=== PATIENT | male | born 1950 | race Caucasian/White ===

== ENCOUNTER → 2022-10-04 08:43 | Outpatient (BNVA) | payer MEDICARE, SELFPAY | PROVIDERS: PCP Physician Assistant; Visit Provider Psychiatry & Neurology Neurology | DX: G20 Parkinson's disease (principal); G47.10 Hypersomnia, unspecified; R06.83 Snoring; R44.3 Hallucinations, unspecified | CPT/HCPCS: 99202 ==

== ENCOUNTER → 2022-10-29 12:53 | Outpatient (REF) | payer MEDICARE, SELFPAY | LOC: HO.SL 12:53 | PROVIDERS: PCP Internal Medicine; Visit Provider Psychiatry & Neurology Neurology | DX: Z13.89 Encounter for screening for other disorder (principal) ==

== ENCOUNTER 2023-06-27 12:11 | Outpatient (AMB) | payer MEDICARE, SELFPAY ==
--- NOTE | 2023-06-27 12:49 | A.OFFVIS_ITS ---
Intake Vital Signs 06/27/23 12:53 Height 5 ft 4 in Weight 182 lb 2 oz BMI 31.3 BP 138/68 Blood Pressure Location Rt brachial Position Sitting Respiration 15 Pulse 61 Pulse Source Pulse Oximeter Pulse Oximetry (%) 98 Oxygen Delivery Method Room Air Intake Visit Reasons: 4m follow up parkinsons-LVM Intake Note: Pt presents to office for his 4 month follow up for Parkinson's disease. Pt states he thinks his symptoms are becoming worse.His tremors are worse, gait is unsteady, increased salivation. Allergies No Known Allergies Allergy (Verified 06/27/23 12:52) Medication List - Last Reconciled 06/27/23 by Odilia Pandey MD carbidopa-levodopa 25-100 mg 0.5 tabs PO TID 30 days lisinopril-hydrochlorothiazide 20-12.5 mg 1 tab PO DAILY lorazepam 0.5 mg PO DAILY rosuvastatin 5 mg PO DAILY sertraline 25 mg PO DAILY zolpidem 10 mg PO BEDTIME PRN HPI HPI Comments History of Present Illness Details 72y/o Right handed male comes for follow up of parkinsons disease [place] [address] Patel. He is accompanied by his multimedia specialist Sintia.He noticed mild worsening of symptoms but still independent in all his ADLs. Previous history- His main symptom was left hand tremors and shuffling , drooling that started 1 year ago. He noticed intermittent left hand tremors about 21years ago and it has progressively worsened since then .The tremors are mostly at rest . The tremors does not bother him and does not affect his ADLs. He reports mild memory issues . He has short term memory issues. No word finding difficulties. He takes zolpidem for sleep. He has sleep talking and some abnormal movements in sleep. He denies kicking screaming. He has occasional snoring. No gasping arousals or witnessed apneas. He has occasional daytime fatigue. he denies nightmares, vivid dreams , REM behavior disorder. His mood is Ok and he is motivated. He feels his speech is softer. He has excessive drooling.. He has no difficulty with hand writing, using utensils, dressing. He can shower without help. His gait is slow and mildly off balance . His steps are shorter . No dizziness , no double vision . He has occasional mild hallucinations. He has constipation and mild urgency . No head injury, no fh/o parkinsons, no exposure to insecticides. [facility] Medical History Anemia Arthritis BPH (benign prostatic hyperplasia) Vertigo Cataracts, bilateral Carpal tunnel syndrome HTN (hypertension) Hyperlipidemia Insomnia Depression Anxiety Obesity Surgical History Hx of shoulder surgery Family History Other No known health problems Social History Household Members: Friend(s) Alcohol intake: current Alcohol intake frequency: holidays/special occasions only Alcohol type: hard liquor Patient Tobacco Use Status: Former Tobacco user Tobacco use type: Cigar Years Smoked: former Physical Exam Vital Signs: Last Vital Signs Pulse 61 06/27/23 12:53 Resp 15 06/27/23 12:53 BP 138/68 06/27/23 12:53 Pulse Ox 98 06/27/23 12:53 Oxygen Delivery Method Room Air 06/27/23 12:53 BMI result Body Mass Index 31.3 Const General: cooperative, healthy appearing and comfortable Nutritional Appearance: overweight Orientation/consciousness: patient oriented x3 HEENT Head: Yes normal to inspection Neck Other: mild antecollis and restricted range of motion Neuro Other: Mild decreased blink and facial expression No lip tremors, tongue tremors , slow tongue movements Voice- normal Left UE mild amplitude rest tremors Fine Finger movements - moderately decreased fatoumata l>R Alternating hand movements - decreased fatoumata Hand movements - decreased fatoumata Foot taps- decreased fatoumata mild cog wheel rigidity gait - stooped, mild slowness and decreased arm swing L>R General: patient oriented x3 Cranial nerves: Yes CN's II-XII intact bilaterally, Yes Bilaterally intact EOM present, Yes Normal facial strength present and Yes Midline tongue present Cognition (Neuro): normal cognition Motor exam (neuro): 5/5 motor strength present throughout and Normal motor muscle tone present throughout Deep tendon reflexes (DTR's): Right triceps reflex intensity grade: 2+, Left triceps reflex intensity grade: 2+, Rt Biceps (C5, C6): 2+, Left biceps reflex intensity grade: 2+, Right brachioradialis reflex intensity grade: 2+, Left brachioradialis reflex intensity grade: 2+, Right patellar reflex intensity grade: 2+ and Left patellar reflex intensity grade: 2+ Coordination: [id number] test normal Assessment & Plan Assessment & Plan (1) Parkinson's disease: Code(s): G20 - Parkinson's disease (2) Snoring: Code(s): R06.83 - Snoring (3) Hypersomnia: Code(s): G47.10 - Hypersomnia, unspecified (4) Hallucinations: Code(s): R44.3 - Hallucinations, unspecified Plan Diagnosis of parkinsons and management options were discussed in detail I suggested PT for gait training He wants to hold off on medications for now. Restart sertraline 25 mg qd I am also concerned about about his infrequent hallucinations- will follow up clinically. Home sleep test to r/o sleep apnea- could not do the test Orders: Orders PT Evaluation and Treatment Today G20 - Parkinson's disease Medications: New sertraline 25 mg PO DAILY 30 tabs 6RF Discontinued carbidopa-levodopa 25-100 mg Discontinued Reason: Patient no longer taking 0.5 tabs PO TID 30 days 45 tabs 1RF Coding Level of Care Code Est Pt Level 4 (62951) Diagnoses Parkinson's disease G20 Snoring R06.83 Hypersomnia G47.10 Hallucinations R44.3
[2023-06-27 12:53] VITALS: BP 138/68; PULSE 61; RESP 15; O2SAT 98; BMI 31.3
== END 2023-06-27 13:10 | disposition home or self-care (01) ==
PROVIDERS: Visit Provider Psychiatry & Neurology Neurology
DX: G20.A1 Parkinson's disease without dyskinesia, without mention of fluctuations (principal); R44.3 Hallucinations, unspecified; R06.83 Snoring; G47.10 Hypersomnia, unspecified
CPT/HCPCS: 99214

== ENCOUNTER → 2023-06-27 12:11 | Outpatient (BNVA) | payer MEDICARE, SELFPAY | PROVIDERS: Visit Provider Psychiatry & Neurology Neurology | DX: G20.A1 Parkinson's disease without dyskinesia, without mention of fluctuations (principal); R06.83 Snoring; G47.10 Hypersomnia, unspecified; R44.3 Hallucinations, unspecified | CPT/HCPCS: 99212 ==

== ENCOUNTER 2023-11-17 15:20 | Outpatient (AMB) | payer MEDICARE, SELFPAY ==
--- NOTE | 2023-11-17 15:23 | A.OFFVIS_ITS ---
Intake Vital Signs 11/17/23 15:24 Height 5 ft 4 in Weight 182 lb BMI 31.2 BP 142/68 H Blood Pressure Location Rt brachial Position Sitting Respiration 16 Pulse 58 Pulse Source Pulse Oximeter Pulse Oximetry (%) 98 Oxygen Delivery Method Room Air Intake Visit Reasons: 4 mo f/u - Parkinson-CONF Intake Note: Pt presents to the office for 4 month follow up for Parkinson's. Pt c/o changes in his speech- he states he is noticing it is slower lately. Director Informatics Required: No Allergies No Known Allergies Allergy (Verified 11/17/23 15:23) Medication List - Last Reconciled 11/17/23 by Odilia Pandey MD lisinopril-hydrochlorothiazide 20-12.5 mg 1 tab PO DAILY lorazepam 0.5 mg PO DAILY rosuvastatin 5 mg PO DAILY sertraline 25 mg PO DAILY zolpidem 10 mg PO BEDTIME PRN HPI HPI Comments History of Present Illness Details 72y/o Right handed male comes for follow up of parkinsons disease diagnosed [place] [address] Patel. He noticed mild worsening of symptoms but still independent in all his ADLs. He has drooling which is worse now . Sleep- good , no nightmares or REM behavior now Mood- anxiety Memory- Mild diffiuclty Speech- softer , mild slurring Using utensils- good Dressing and showering- good No falls Gait- good Bowel movements- was in ER few weeks ago for constipation No head injury, no fh/o parkinsons, no exposure to insecticides. [facility] Medical History (Updated 11/17/23 @ 15:37 by Odilia Pandey MD) Constipation Parkinson's disease without dyskinesia Anemia Arthritis BPH (benign prostatic hyperplasia) Vertigo Cataracts, bilateral Carpal tunnel syndrome HTN (hypertension) Hyperlipidemia Insomnia Depression Anxiety Obesity Surgical History Hx of shoulder surgery Family History Other No known health problems Social History Household Members: Friend(s) Alcohol intake: current Alcohol intake frequency: holidays/special occasions only Alcohol type: hard liquor Patient Tobacco Use Status: Former Tobacco user Tobacco use type: Cigar Years Smoked: former Physical Exam Vital Signs: Last Vital Signs Pulse 58 11/17/23 15:24 Resp 16 11/17/23 15:24 BP 142/68 H 11/17/23 15:24 Pulse Ox 98 11/17/23 15:24 Oxygen Delivery Method Room Air 11/17/23 15:24 BMI result Body Mass Index 31.2 Const General: cooperative, healthy appearing and comfortable Nutritional Appearance: overweight Orientation/consciousness: patient oriented x3 HEENT Head: Yes normal to inspection Neck Other: mild antecollis and restricted range of motion Neuro Other: Mild decreased blink and facial expression No lip tremors, tongue tremors , slow tongue movements Voice- normal Left UE mild amplitude rest tremors Fine Finger movements - moderately decreased fatoumata l>R Alternating hand movements - decreased fatoumata Hand movements - decreased fatoumata Foot taps- decreased fatoumata mild cog wheel rigidity gait - stooped, mild slowness and decreased arm swing L>R General: patient oriented x3 Cranial nerves: Yes CN's II-XII intact bilaterally, Yes Bilaterally intact EOM present, Yes Normal facial strength present and Yes Midline tongue present Cognition (Neuro): normal cognition Motor exam (neuro): 5/5 motor strength present throughout and Normal motor muscle tone present throughout Deep tendon reflexes (DTR's): Right triceps reflex intensity grade: 2+, Left triceps reflex intensity grade: 2+, Rt Biceps (C5, C6): 2+, Left biceps reflex intensity grade: 2+, Right brachioradialis reflex intensity grade: 2+, Left brachioradialis reflex intensity grade: 2+, Right patellar reflex intensity grade: 2+ and Left patellar reflex intensity grade: 2+ Coordination: [id number] test normal Assessment & Plan Assessment & Plan (1) Parkinson's disease without dyskinesia: Code(s): G20.A1 - Parkinson's disease without dyskinesia, without mention of fluctuations (2) Constipation: Code(s): K59.00 - Constipation, unspecified Plan I will trial him on sinemet 25/100 1/2 tab bid - monitor for hallucinations continue exercises senna for constipation Coding Level of Care Code Est Pt Level 4 (31364) Diagnoses Parkinson's disease without dyskinesia G20.A1 Constipation K59.00
[2023-11-17 15:24] VITALS: BP 142/68; PULSE 58; RESP 16; O2SAT 98; BMI 31.2
== END 2023-11-17 15:47 | disposition home or self-care (01) ==
LOC: HO.HSMS 15:20
PROVIDERS: PCP Internal Medicine; Visit Provider Psychiatry & Neurology Neurology
DX: G20.A1 Parkinson's disease without dyskinesia, without mention of fluctuations (principal); K59.00 Constipation, unspecified
CPT/HCPCS: 99214

== ENCOUNTER → 2023-11-17 15:20 | Outpatient (BNVA) | payer MEDICARE, SELFPAY | PROVIDERS: PCP Internal Medicine; Visit Provider Psychiatry & Neurology Neurology | DX: G20.A1 Parkinson's disease without dyskinesia, without mention of fluctuations (principal); K59.00 Constipation, unspecified | CPT/HCPCS: 99212 ==

== ENCOUNTER 2024-03-02 11:25 | Outpatient (AMB) | payer MEDICARE, SELFPAY ==
--- NOTE | 2024-03-02 11:22 | MHC.OFFVIS ---
Vital Signs 03/02/24 11:23 Height 5 ft 4 in Weight 182 lb BMI 31.2 BP 120/62 Blood Pressure Location Rt brachial Position Sitting Respiration 16 Pulse 68 Pulse Source Pulse Oximeter Pulse Oximetry (%) 96 Oxygen Delivery Method Room Air Intake Visit Reasons: 3 Month F/U - Conf Intake Note: Pt presents to the office for a 3 month follow up for Parkinson's. [employer] Required: No Allergies No Known Allergies Allergy (Verified 03/02/24 11:23) Medication List - Last Reconciled 03/02/24 by Odilia Pandey MD lisinopril-hydrochlorothiazide 20-12.5 mg 1 tab PO DAILY rosuvastatin 5 mg PO DAILY zolpidem 10 mg PO BEDTIME PRN HPI Comments Details: 73y/o Right handed male comes for follow up of parkinsons disease diagnosed [place] [address] Patel. He noticed mild worsening of symptoms but still independent in all his ADLs. he tried carbidopa/levodopa for 10 days and made him tired He has drooling which is worse now . Sleep- good , no nightmares or REM behavior now Mood- anxiety and depression Memory- Mild difficulty Speech- softer , mild slurring Using utensils- good Dressing and showering- good No falls Gait- good Bowel movements- constipation but manageable No head injury, no fh/o parkinsons, no exposure to insecticides. [facility] Medical History (Updated 03/02/24 @ 11:36 by Odilia Pandey MD) Depression Constipation Parkinson's disease without dyskinesia Anemia Arthritis BPH (benign prostatic hyperplasia) Vertigo Cataracts, bilateral Carpal tunnel syndrome HTN (hypertension) Hyperlipidemia Insomnia Depression Anxiety Obesity Surgical History Hx of shoulder surgery Family History Other No known health problems Social History Household Members: Friend(s) Alcohol intake: current Alcohol intake frequency: holidays/special occasions only Alcohol type: hard liquor Patient Tobacco Use Status: Former Tobacco user Tobacco use type: Cigar Years Smoked: former Physical Exam Vital Signs: Last Vital Signs Pulse 68 03/02/24 11:23 Resp 16 03/02/24 11:23 BP 120/62 03/02/24 11:23 Pulse Ox 96 03/02/24 11:23 Oxygen Delivery Method Room Air 03/02/24 11:23 BMI result Body Mass Index 31.2 Const General: cooperative, healthy appearing and comfortable Nutritional Appearance: overweight Orientation/consciousness: patient oriented x3 HEENT Head: Yes normal to inspection Neck Other: mild antecollis and restricted range of motion Neuro Other: Mild decreased blink and facial expression No lip tremors, tongue tremors , slow tongue movements Voice- normal Left UE mild amplitude rest tremors Fine Finger movements - moderately decreased fatoumata l>R Alternating hand movements - decreased fatoumata Hand movements - decreased fatoumata Foot taps- decreased fatoumata mild cog wheel rigidity gait - stooped, mild slowness and decreased arm swing L>R General: patient oriented x3 Cranial nerves: Yes CN's II-XII intact bilaterally, Yes Bilaterally intact EOM present, Yes Normal facial strength present and Yes Midline tongue present Cognition (Neuro): normal cognition Motor exam (neuro): 5/5 motor strength present throughout and Normal motor muscle tone present throughout Deep tendon reflexes (DTR's): Right triceps reflex intensity grade: 2+, Left triceps reflex intensity grade: 2+, Rt Biceps (C5, C6): 2+, Left biceps reflex intensity grade: 2+, Right brachioradialis reflex intensity grade: 2+, Left brachioradialis reflex intensity grade: 2+, Right patellar reflex intensity grade: 2+ and Left patellar reflex intensity grade: 2+ Coordination: [id number] test normal Assessment & Plan Assessment & Plan (1) Parkinson's disease without dyskinesia: Code(s): G20.A1 - Parkinson's disease without dyskinesia, without mention of fluctuations Category: Medical (2) Constipation: Code(s): K59.00 - Constipation, unspecified Category: Medical (3) Depression: Code(s): F32.A - Depression, unspecified Category: Medical Plan I will trial him on rasagiline 1mg qd I will trial him on lexapro 5mg qd - monitor for hallucinations continue exercises senna for constipation Medications: New rasagiline 1 mg PO DAILY 30 tabs 6RF escitalopram oxalate 5 mg PO DAILY 30 tabs 6RF Coding Level of Care Code Est Pt Level 4 (46803) Complex EM visit Add On G2211 Diagnoses Parkinson's disease without dyskinesia G20.A1 Constipation K59.00 Depression F32.A
[2024-03-02 11:23] VITALS: BP 120/62; PULSE 68; RESP 16; O2SAT 96; BMI 31.2
== END 2024-03-02 13:15 | disposition home or self-care (01) ==
PROVIDERS: PCP Internal Medicine; Visit Provider Psychiatry & Neurology Neurology
DX: G20.A1 Parkinson's disease without dyskinesia, without mention of fluctuations (principal); K59.00 Constipation, unspecified; F32.A Depression, unspecified
CPT/HCPCS: 99214; G2211

== ENCOUNTER → 2024-03-02 11:25 | Outpatient (BNVA) | payer MEDICARE, SELFPAY | PROVIDERS: PCP Internal Medicine; Visit Provider Psychiatry & Neurology Neurology | DX: G20.A1 Parkinson's disease without dyskinesia, without mention of fluctuations (principal); K59.00 Constipation, unspecified; F32.A Depression, unspecified | CPT/HCPCS: 99212 ==

== ENCOUNTER 2024-07-12 07:32 | Outpatient (AMB) | payer MEDICARE, SELFPAY ==
--- NOTE | 2024-07-12 07:34 | MHC.OFFVIS ---
Vital Signs 07/12/24 07:35 Height 5 ft 4 in Weight 183 lb BMI 31.4 BP 144/80 H Blood Pressure Location Rt brachial Position Sitting Intake Visit Reasons: Follow up Intake Note: Patient presents for follow up. Allergies No Known Allergies Allergy (Verified 07/12/24 07:38) Medication List - Last Reconciled 07/12/24 by Odilia Pandey MD escitalopram oxalate 5 mg PO DAILY lisinopril-hydrochlorothiazide 20-12.5 mg 1 tab PO DAILY rasagiline 1 mg PO DAILY rosuvastatin 5 mg PO DAILY zolpidem 10 mg PO BEDTIME PRN HPI Comments Details: 73y/o Right handed male comes for follow up of parkinsons disease diagnosed [place] [address] Patel. He was tired rasagiline and lexapro but patient did not start.He feels his symptoms have progressed and wants to try meds . History from last visit- He noticed mild worsening of symptoms but still independent in all his ADLs. he tried carbidopa/levodopa for 10 days and made him tired He has drooling which is worse now . Sleep- good , no nightmares or REM behavior now Mood- anxiety and depression Memory- Mild difficulty Speech- softer , mild slurring Using utensils- good Dressing and showering- good No falls Gait- good Bowel movements- constipation but manageable No head injury, no fh/o parkinsons, no exposure to insecticides. [facility] Medical History Depression Constipation Parkinson's disease without dyskinesia Anemia Arthritis BPH (benign prostatic hyperplasia) Vertigo Cataracts, bilateral Carpal tunnel syndrome HTN (hypertension) Hyperlipidemia Insomnia Depression Anxiety Obesity Surgical History Hx of shoulder surgery Family History Other No known health problems Social History Household Members: Friend(s) Alcohol intake: current Alcohol intake frequency: holidays/special occasions only Alcohol type: hard liquor Patient Tobacco Use Status: Former Tobacco user Tobacco use type: Cigar Years Smoked: former Physical Exam Vital Signs: Last Vital Signs BP 144/80 H 07/12/24 07:35 BMI result Body Mass Index 31.4 Const General: cooperative, healthy appearing and comfortable Nutritional Appearance: overweight Orientation/consciousness: patient oriented x3 HEENT Head: Yes normal to inspection Neck Other: mild antecollis and restricted range of motion Neuro Other: Mild decreased blink and facial expression No lip tremors, tongue tremors , slow tongue movements Voice- normal Left UE mild amplitude rest tremors Fine Finger movements - moderately decreased fatoumata l>R Alternating hand movements - decreased fatoumata Hand movements - decreased fatoumata Foot taps- decreased fatoumata mild cog wheel rigidity gait - stooped, mild slowness and decreased arm swing L>R General: patient oriented x3 Cranial nerves: Yes CN's II-XII intact bilaterally, Yes Bilaterally intact EOM present, Yes Normal facial strength present and Yes Midline tongue present Cognition (Neuro): normal cognition Motor exam (neuro): 5/5 motor strength present throughout and Normal motor muscle tone present throughout Deep tendon reflexes (DTR's): Right triceps reflex intensity grade: 2+, Left triceps reflex intensity grade: 2+, Rt Biceps (C5, C6): 2+, Left biceps reflex intensity grade: 2+, Right brachioradialis reflex intensity grade: 2+, Left brachioradialis reflex intensity grade: 2+, Right patellar reflex intensity grade: 2+ and Left patellar reflex intensity grade: 2+ Coordination: [id number] test normal Assessment & Plan Assessment & Plan (1) Parkinson's disease without dyskinesia: Code(s): G20.A1 - Parkinson's disease without dyskinesia, without mention of fluctuations Category: Medical Qualifiers: Fluctuating manifestations: without fluctuating manifestations Qualified Code(s): G20.A1 - Parkinson's disease without dyskinesia, without mention of fluctuations (2) Constipation: Code(s): K59.00 - Constipation, unspecified Category: Medical Qualifiers: Constipation type: unspecified constipation type Qualified Code(s): K59.00 - Constipation, unspecified (3) Depression: Code(s): F32.A - Depression, unspecified Category: Medical Qualifiers: Depression Type: other depression Qualified Code(s): F32.89 - Other specified depressive episodes Plan I will trial him on rasagiline 1mg qd I will trial him on lexapro 5mg qd - monitor for hallucinations continue exercises senna for constipation Medications: Refilled rasagiline 1 mg PO DAILY 30 tabs 6RF escitalopram oxalate 5 mg PO DAILY 30 tabs 6RF Coding Level of Care Code Est Pt Level 4 (42998) Complex EM visit Add On G2211 Diagnoses Parkinson's disease without dyskinesia or fluctuating manifestations G20.A1 Fluctuating manifestations: without fluctuating manifestations Constipation, unspecified constipation type K59.00 Constipation type: unspecified constipation type Other depression F32.89 Depression Type: other depression
[2024-07-12 07:35] VITALS: BP 144/80; BMI 31.4
== END 2024-07-12 08:14 | disposition home or self-care (01) ==
PROVIDERS: PCP Internal Medicine; Visit Provider Psychiatry & Neurology Neurology
DX: G20.A1 Parkinson's disease without dyskinesia, without mention of fluctuations (principal); K59.00 Constipation, unspecified; F32.89 Other specified depressive episodes
CPT/HCPCS: 99214; G2211

== ENCOUNTER → 2024-07-12 07:32 | Outpatient (BNVA) | payer MEDICARE, SELFPAY | PROVIDERS: PCP Internal Medicine; Visit Provider Psychiatry & Neurology Neurology | DX: G20.A1 Parkinson's disease without dyskinesia, without mention of fluctuations (principal); K59.00 Constipation, unspecified; F32.89 Other specified depressive episodes | CPT/HCPCS: 99212 ==

== ENCOUNTER 2024-08-27 09:57 | Outpatient (AMB) | payer MEDICARE, SELFPAY ==
--- NOTE | 2024-08-27 09:58 | MHC.OFFVIS ---
Vital Signs 08/27/24 10:00 Height 5 ft Weight 183 lb BMI 35.7 Intake Visit Reasons: Follow up Intake Note: Patient presents for follow up Allergies No Known Allergies Allergy (Verified 08/27/24 10:03) Medication List - Last Reconciled 08/27/24 by Odilia Pandey MD escitalopram oxalate 5 mg PO DAILY lisinopril-hydrochlorothiazide 20-12.5 mg 1 tab PO DAILY polyethylene glycol 3350 (Miralax) 17 grams PO .3 times a week rasagiline 1 mg PO DAILY rosuvastatin 5 mg PO DAILY zolpidem 10 mg PO BEDTIME PRN HPI Comments Details: 73y/o Right handed male comes for follow up of parkinsons disease [place] [address] Patel. He is on rasagiline 1mg and lexapro 5mg and feels he is doing good , less anxiety.he feels that now he also has some symptoms on the right side and his walking is slower History from last visit- He noticed mild worsening of symptoms but still independent in all his ADLs. he tried carbidopa/levodopa for 10 days and made him tired He has drooling which is worse now . Sleep- good , no nightmares or REM behavior now Mood- anxiety and depression Memory- Mild difficulty Speech- softer , mild slurring Using utensils- good Dressing and showering- good No falls Gait- good Bowel movements- constipation but manageable No head injury, no fh/o parkinsons, no exposure to insecticides. [facility] Medical History Depression Constipation Parkinson's disease without dyskinesia Anemia Arthritis BPH (benign prostatic hyperplasia) Vertigo Cataracts, bilateral Carpal tunnel syndrome HTN (hypertension) Hyperlipidemia Insomnia Depression Anxiety Obesity Surgical History Hx of shoulder surgery Family History Other No known health problems Social History Household Members: Friend(s) Alcohol intake: current Alcohol intake frequency: holidays/special occasions only Alcohol type: hard liquor Patient Tobacco Use Status: Former Tobacco user Tobacco use type: Cigar Years Smoked: former Physical Exam Vital Signs: BMI result Body Mass Index 35.7 Const General: cooperative, healthy appearing and comfortable Nutritional Appearance: overweight Orientation/consciousness: patient oriented x3 HEENT Head: Yes normal to inspection Neck Other: mild antecollis and restricted range of motion Neuro Other: Mild decreased blink and facial expression No lip tremors, tongue tremors , slow tongue movements Voice- normal Left UE mild amplitude rest tremors - rare Fine Finger movements - mild decreased fatoumata l>R Alternating hand movements - decreased fatoumata Hand movements - decreased fatoumata Foot taps- decreased fatoumata mild cog wheel rigidity gait - good mild slowness and decreased arm swing L>R General: patient oriented x3 Cranial nerves: Yes CN's II-XII intact bilaterally, Yes Bilaterally intact EOM present, Yes Normal facial strength present and Yes Midline tongue present Cognition (Neuro): normal cognition Motor exam (neuro): 5/5 motor strength present throughout and Normal motor muscle tone present throughout Coordination: [id number] test normal Assessment & Plan Assessment & Plan (1) Parkinson's disease without dyskinesia: Code(s): G20.A1 - Parkinson's disease without dyskinesia, without mention of fluctuations Category: Medical Qualifiers: Fluctuating manifestations: without fluctuating manifestations Qualified Code(s): G20.A1 - Parkinson's disease without dyskinesia, without mention of fluctuations (2) Constipation: Code(s): K59.00 - Constipation, unspecified Category: Medical Qualifiers: Constipation type: unspecified constipation type Qualified Code(s): K59.00 - Constipation, unspecified (3) Depression: Code(s): F32.A - Depression, unspecified Category: Medical Qualifiers: Depression Type: other depression Qualified Code(s): F32.89 - Other specified depressive episodes Plan Continue rasagiline 1mg qd Continue lexapro 5mg qd - monitor for hallucinations continue exercises Parkinsons class at [facility] for constipation, suggested smooth move tea and miralax Medications: New polyethylene glycol 3350 (Miralax) 17 grams PO .3 times a week 510 grams 6RF Coding Level of Care Code Est Pt Level 4 (48968) Complex EM visit Add On G2211 Diagnoses Parkinson's disease without dyskinesia or fluctuating manifestations G20.A1 Fluctuating manifestations: without fluctuating manifestations Constipation, unspecified constipation type K59.00 Constipation type: unspecified constipation type Other depression F32.89 Depression Type: other depression
[2024-08-27 10:00] VITALS: BMI 35.7
== END 2024-08-27 10:35 | disposition home or self-care (01) ==
PROVIDERS: PCP Internal Medicine; Visit Provider Psychiatry & Neurology Neurology
DX: G20.A1 Parkinson's disease without dyskinesia, without mention of fluctuations (principal); K59.00 Constipation, unspecified; F32.89 Other specified depressive episodes
CPT/HCPCS: 99214; G2211

== ENCOUNTER → 2024-08-27 09:57 | Outpatient (BNVA) | payer MEDICARE, SELFPAY | PROVIDERS: PCP Internal Medicine; Visit Provider Psychiatry & Neurology Neurology | DX: G20.A1 Parkinson's disease without dyskinesia, without mention of fluctuations (principal); K59.00 Constipation, unspecified; F32.89 Other specified depressive episodes | CPT/HCPCS: 99212 ==

== ENCOUNTER 2025-02-28 07:29 | Outpatient (AMB) | payer MEDICARE, SELFPAY ==
[2025-02-28 07:34] VITALS: BP 132/70; PULSE 55; BMI 35.2
--- NOTE | 2025-02-28 07:34 | A.OFFVIS_ITS ---
Vital Signs 02/28/25 07:34 Height 5 ft Weight 180 lb BMI 35.2 BP 132/70 Blood Pressure Location Rt brachial Position Sitting Pulse 55 Pulse Source Pulse Oximeter Oxygen Delivery Method Room Air Oxygen Flow Rate 96 Intake Visit Reasons: 6 mo follow up Intake Note: Patient presents for follow up Parkinson's. Allergies No Known Allergies Allergy (Verified 02/28/25 07:36) Medication List - Last Reconciled 02/28/25 by Odilia Pandey MD escitalopram oxalate 5 mg PO DAILY lisinopril-hydrochlorothiazide 20-12.5 mg 1 tab PO DAILY polyethylene glycol 3350 (Miralax) 17 grams PO .3 times a week rasagiline 1 mg PO DAILY rosuvastatin 5 mg PO DAILY zolpidem 10 mg PO BEDTIME PRN HPI Comments Details: 74y/o Right handed male comes for follow up of parkinsons disease [place] [address] Patel. He is on rasagiline 1mg and lexapro 5mg and feels he is ok , less anxiety.he feels that now he also has some symptoms on the right side and his walking is slower He does [employer] fit 3 times a week. He has mild word finding difficulty. He reports excessive fatigue . He takes naps during daytime History from last visit- He noticed mild worsening of symptoms but still independent in all his ADLs. he tried carbidopa/levodopa for 10 days and made him tired He has drooling which is worse now . Sleep- good , no nightmares or REM behavior now Mood- anxiety and depression Memory- Mild difficulty Speech- softer , mild slurring Using utensils- good Dressing and showering- good No falls Gait- good Bowel movements- constipation but manageable No head injury, no fh/o parkinsons, no exposure to insecticides. [facility], [facility] Medical History (Updated 02/28/25 @ 07:55 by Odilia Pandey MD) Snoring Hypersomnia Depression Constipation Parkinson's disease without dyskinesia Anemia Arthritis BPH (benign prostatic hyperplasia) Vertigo Cataracts, bilateral Carpal tunnel syndrome HTN (hypertension) Hyperlipidemia Insomnia Depression Anxiety Obesity Surgical History Hx of shoulder surgery Family History Other No known health problems Social History Household Members: Friend(s) Alcohol intake: current Alcohol intake frequency: holidays/special occasions only Alcohol type: hard liquor Patient Tobacco Use Status: Former Tobacco user Tobacco use type: Cigar Years Smoked: former Physical Exam Vital Signs: Last Vital Signs Pulse 55 02/28/25 07:34 BP 132/70 02/28/25 07:34 Oxygen Delivery Method Room Air 02/28/25 07:34 Oxygen Flow Rate 96 02/28/25 07:34 BMI result Body Mass Index 35.2 Const General: cooperative, healthy appearing and comfortable Nutritional Appearance: overweight Orientation/consciousness: patient oriented x3 HEENT Head: Yes normal to inspection Neck Other: mild antecollis and restricted range of motion Neuro Other: Mild decreased blink and facial expression No lip tremors, tongue tremors , slow tongue movements Voice- normal Left UE mild amplitude rest tremors - rare Fine Finger movements - mild decreased fatoumata l>R Alternating hand movements - decreased fatoumata Hand movements - decreased fatoumata Foot taps- decreased fatoumata mild cog wheel rigidity gait - good mild slowness and decreased arm swing L>R General: patient oriented x3 Cranial nerves: Yes CN's II-XII intact bilaterally, Yes Bilaterally intact EOM present, Yes Normal facial strength present and Yes Midline tongue present Cognition (Neuro): normal cognition Motor exam (neuro): 5/5 motor strength present throughout and Normal motor muscle tone present throughout Coordination: [id number] test normal Assessment & Plan Assessment & Plan (1) Parkinson's disease without dyskinesia: Code(s): G20.A1 - Parkinson's disease without dyskinesia, without mention of fluctuations Category: Medical Qualifiers: Fluctuating manifestations: without fluctuating manifestations Qualified Code(s): G20.A1 - Parkinson's disease without dyskinesia, without mention of fluctuations (2) Constipation: Code(s): K59.00 - Constipation, unspecified Category: Medical Qualifiers: Constipation type: unspecified constipation type Qualified Code(s): K59.00 - Constipation, unspecified (3) Depression: Code(s): F32.A - Depression, unspecified Category: Medical Qualifiers: Depression Type: other depression Qualified Code(s): F32.89 - Other specified depressive episodes (4) Hypersomnia: Code(s): G47.10 - Hypersomnia, unspecified Category: Medical (5) Snoring: Code(s): R06.83 - Snoring Category: Medical Plan Continue rasagiline 1mg qd Increase lexapro 10mg qd - monitor for hallucinations sleep study - in lab study - could not do home sleep test continue exercises Parkinsons class at [facility] for constipation, suggested smooth move tea and miralax Orders: Orders RT PSG in-lab sleep study 02/28/25 G47.10 - Hypersomnia, unspecified, R06.83 - Snoring Medications: Changed From escitalopram oxalate 5 mg PO DAILY 30 tabs 6RF To escitalopram oxalate 10 mg PO DAILY 30 tabs 6RF Coding Level of Care Code Est Pt Level 4 (29717) Complex EM visit Add On G2211 Diagnoses Parkinson's disease without dyskinesia or fluctuating manifestations G20.A1 Fluctuating manifestations: without fluctuating manifestations Constipation, unspecified constipation type K59.00 Constipation type: unspecified constipation type Other depression F32.89 Depression Type: other depression Hypersomnia G47.10 Snoring R06.83
== END 2025-02-28 08:03 | disposition home or self-care (01) ==
LOC: HO.HSMS 07:30
PROVIDERS: PCP Internal Medicine; Visit Provider Psychiatry & Neurology Neurology
DX: G20.A1 Parkinson's disease without dyskinesia, without mention of fluctuations (principal); K59.00 Constipation, unspecified; F32.89 Other specified depressive episodes; G47.10 Hypersomnia, unspecified; R06.83 Snoring
CPT/HCPCS: 99214; G2211

== ENCOUNTER → 2025-02-28 07:29 | Outpatient (BNVA) | payer MEDICARE, SELFPAY | PROVIDERS: PCP Internal Medicine; Visit Provider Psychiatry & Neurology Neurology | DX: G20.A1 Parkinson's disease without dyskinesia, without mention of fluctuations (principal); F32.89 Other specified depressive episodes; G47.10 Hypersomnia, unspecified; R06.83 Snoring; K59.00 Constipation, unspecified | CPT/HCPCS: 99212 ==

== ENCOUNTER 2025-04-28 13:55 | Outpatient (AMB) | payer MEDICARE, SELFPAY ==
[2025-04-28 13:56] VITALS: BP 120/62; PULSE 65; O2SAT 95; BMI 35.0
--- NOTE | 2025-04-28 13:56 | MHC.OFFVIS ---
Vital Signs 04/28/25 13:56 Height 5 ft Weight 179 lb 2 oz BMI 35.0 BP 120/62 Blood Pressure Location Rt brachial Position Sitting Pulse 65 Pulse Source Pulse Oximeter Pulse Oximetry (%) 95 Oxygen Delivery Method Room Air Intake Visit Reasons: 4 mnts f/u appt Intake Note: Follow up care Accompanied by: Self / Same As Patient Allergies No Known Allergies Allergy (Verified 04/28/25 14:01) HPI Comments Details: 74y/o Right handed male comes for follow up of parkinsons disease diagnosed [place] [address] Patel.H efjose manuells his symptoms have worsened . He feels he is slower and tremors are worse .He is also concerned about his mem He is on rasagiline 1mg and lexapro 5mg and feels he is ok.His voice is softer. He has a feeling that someone is standing next to him. He does [employer] fit 3 times a week. He has word finding difficulty. He reports excessive fatigue . He takes naps during daytime History from last visit- He noticed mild worsening of symptoms but still independent in all his ADLs. he tried carbidopa/levodopa for 10 days and made him tired He has drooling which is worse now . Sleep- good , no nightmares or REM behavior now Mood- anxiety and depression Memory- Mild difficulty Speech- softer , mild slurring Using utensils- good Dressing and showering- good No falls Gait- good Bowel movements- constipation but manageable No head injury, no fh/o parkinsons, no exposure to insecticides. [facility] Medical History (Updated 02/28/25 @ 07:55 by Odilia Pandey MD) Snoring Hypersomnia Depression Constipation Parkinson's disease without dyskinesia Anemia Arthritis BPH (benign prostatic hyperplasia) Vertigo Cataracts, bilateral Carpal tunnel syndrome HTN (hypertension) Hyperlipidemia Insomnia Depression Anxiety Obesity Surgical History Hx of shoulder surgery Family History Other No known health problems Social History Household Members: Friend(s) Alcohol intake: current Alcohol intake frequency: holidays/special occasions only Alcohol type: hard liquor Patient Tobacco Use Status: Former Tobacco user Tobacco use type: Cigar Years Smoked: former Physical Exam Vital Signs: Last Vital Signs Pulse 65 04/28/25 13:56 BP 120/62 04/28/25 13:56 Pulse Ox 95 04/28/25 13:56 Oxygen Delivery Method Room Air 04/28/25 13:56 BMI result Body Mass Index 35.0 Const General: cooperative, healthy appearing and comfortable Nutritional Appearance: overweight Orientation/consciousness: patient oriented x3 HEENT Head: Yes normal to inspection Neck Other: mild antecollis and restricted range of motion Neuro Other: Mild decreased blink and facial expression No lip tremors, tongue tremors , slow tongue movements Voice- normal Left UE mild amplitude rest tremors Fine Finger movements - mild decreased fatoumata l>R Alternating hand movements - decreased fatoumata Hand movements - decreased fatoumata Foot taps- decreased fatoumata mild cog wheel rigidity gait - good mild slowness and decreased arm swing L>R General: patient oriented x3 Cranial nerves: Yes CN's II-XII intact bilaterally, Yes Bilaterally intact EOM present, Yes Normal facial strength present and Yes Midline tongue present Cognition (Neuro): normal cognition Motor exam (neuro): 5/5 motor strength present throughout and Normal motor muscle tone present throughout Coordination: maijip-vy-cpiy test normal Orientation What is the (year) (season) (date) (day) (month)?: year, season, date, day and month Where are we (state) (county) (town or city) (hospital) (floor)?: state, county, town or city, hospital/clinic and floor Registration Name of 3 unrelated objects clearly and slowly, then ask patient to repeat all 3 of them. (1st repeat determines score. Make sure they can repeat all three): object 1, object 2 and object 3 Attention & Calculation (CHOOSE ONE) Spell WORLD backwards (DLROW): 5 letters Recall Ask patient to repeat the 3 items from question #3.: object 1, object 2 and object 3 Language Show patient a wristwatch & ask what it is. Repeat for pencil.: watch and pencil Ask the patient to repeat the phrase 'No ifs, ands, or buts' after you.: correct Ask the patient to 'take a piece of paper with their right hand' 'fold paper in half' 'place paper on floor': take paper in right hand, fold paper in half and place paper on floor Print the sentence 'CLOSE YOUR EYES' on a piece. If patient actually closes eyes then score.: followed written direction Give patient a blank piece of paper & ask to write a sentence. Score if it contains a noun & verb.: sentence contains subject and verb Ask patient to copy figure of intersecting pentagons exactly. Score if all 10 angles & 2 intersects are included.: all 10 angles present & 2 are intersected Score Score: 30 Assessment & Plan Assessment & Plan (1) Parkinson's disease without dyskinesia: Code(s): G20.A1 - Parkinson's disease without dyskinesia, without mention of fluctuations Category: Medical Qualifiers: Fluctuating manifestations: without fluctuating manifestations Qualified Code(s): G20.A1 - Parkinson's disease without dyskinesia, without mention of fluctuations (2) Constipation: Code(s): K59.00 - Constipation, unspecified Category: Medical Qualifiers: Constipation type: unspecified constipation type Qualified Code(s): K59.00 - Constipation, unspecified (3) Depression: Code(s): F32.A - Depression, unspecified Category: Medical Qualifiers: Depression Type: other depression Qualified Code(s): F32.89 - Other specified depressive episodes (4) Hypersomnia: Code(s): G47.10 - Hypersomnia, unspecified Category: Medical (5) Snoring: Code(s): R06.83 - Snoring Category: Medical Plan Continue rasagiline 1mg qd lexapro 10mg qd trial carbidopa /levodopa 25/100 1 /2 tab bid - monitor for hallucinations sleep study - in lab study - could not do home sleep test- rescheduled continue exercises Parkinsons class at [facility] for constipation, suggested smooth move tea and miralax Orders: Referrals Neuropsychiatry Referral G20.A1 - Parkinson's disease without dyskinesia, without mention of fluctuations, R41.89 - Other symptoms and signs involving cognitive functions and awareness Medications: New carbidopa-levodopa 25-100 mg (Sinemet) 0.5 tabs PO BID 30 tabs 6RF Coding Level of Care Code Est Pt Level 4 (24842) Complex EM visit Add On G2211 Diagnoses Parkinson's disease without dyskinesia or fluctuating manifestations G20.A1 Fluctuating manifestations: without fluctuating manifestations Constipation, unspecified constipation type K59.00 Constipation type: unspecified constipation type Other depression F32.89 Depression Type: other depression Hypersomnia G47.10 Snoring R06.83
--- OUTSIDE RECORDS SUMMARY | 2025-04-28 14:46 | XMS_ITS ---
Author Name [facility] Organization Unknown Care Team Organization Name Specialty Phone Email Start Date End [facility] te [facility] Jeana Loja Primary Care 07/23/2022 05/03/2024
--- OUTSIDE RECORDS SUMMARY | 2025-04-28 14:46 | XMS_ITS | Clinical Summary ---
Author Organization [address] [facility] Address [address] [place] [address] Phone Care Team Providers Care Manager Mobility Name Role Phone Jeana Loja Primary Care Provider + Allergies Active Allergy Reactions Criticality Noted Date Comments Simvastatin 06/08/2019 myalgias Medications lisinopril-hydroCH LOROthiazide (PRINZIDE,ZESTORET IC) 20-12.5 mg per tablet Take 1 tablet by mouth 1 (one) time each day. 90 tablet 3 08/02/20 24 Active rosuvastatin (CRESTOR) 5 mg tablet TAKE ONE TABLET BY MOUTH EVERY DAY 90 tablet 3 08/02/20 24 Active sildenafiL (VIAGRA) 50 mg tablet TAKE ONE TABLET BY MOUTH 30 MINUTES BEFORE SEXUAL ACTIVITY 01/21/20 24 Active tobramycin-dexAMET Hasone (TOBRADEX) ophthalmic suspension INSTILL ONE DROP IN EACH EYE TWICE A DAY 03/12/20 24 Active escitalopram (Lexapro) 5 mg tablet Take 1 tablet (5 mg total) by mouth 1 (one) time each day. 09/06/20 24 Active rasagiline (AZILECT) 1 mg tabletIndications: Parkinson's disease, unspecified whether dyskinesia present, unspecified whether manifestations fluctuate (CMS/HCC V24, CMS/HCC V28) Take 1 tablet (1 mg total) by mouth 1 (one) time each day. 09/06/20 24 Active magnesium 250 mg tabletIndications: Primary hypertension Take 1 tablet by mouth at bedtime. 90 tablet 1 01/06/20 25 Active zolpidem (AMBIEN) 10 mg tablet TAKE ONE TABLET BY MOUTH DAILY AT BEDTIME NEEDED FOR SLEEP 28 tablet 04/23/20 25 Active zolpidem (AMBIEN) 10 mg tablet TAKE ONE TABLET BY MOUTH EVERY DAY AT BEDTIME NEEDED FOR SLEEP 28 tablet 03/23/20 25 025 Discontinued Active Problems Problem Noted Date Diagnosed Date Obesity (BMI 30.0-34.9) 07/30/2024 Left shoulder pain 11/16/2018 Hypertension 11/21/2017 Hyperlipidemia 11/21/2017 Bilateral carpal tunnel syndrome 11/04/2017 Bilateral cataracts 05/02/2017 Vertigo 05/02/2017 BPPV (benign paroxysmal positional vertigo) 03/15 Decreased hearing of left ear 04/01/2017 Anal fissure 10/23/2016 Anemia 10/22/2016 Overview (07/30/2024): mild normocytic - no iron or b12 def Insomnia 10/22/2016 Benign prostatic hyperplasia 07/19/2016 Anxiety and depression 12/19/2015 Arthralgia of multiple sites 12/19/2015 Internal hemorrhoids 02/26/2013 Parkinson's disease ([facility] V24, [facility] V28) Encounters Date Type Department Care Team Description 02/08/2025 9:45 AM EDT Office Visit Internal Medicine - [address] [place] [address] Jeana Loja PA Primary hypertension (Primary Dx); Pure hypercholesterolemia from Last 3 Months Immunizations Name Administration Dates Next Due Influenza Quadravalent, 0.5m l (Fluad) 65yo and older 09/16/2023,06/20/2020 Influenza Quadravalent, 0.5m l (Fluzone High-dose) 65yo and older 07/20/2022,07/14/2021 Influenza trivalent, 0.5mL ( Fluad) 65yo and older 09/06/2024,07/10/2019,07/14/2018 Influenza trivalent, 0.5mL ( Fluzone High-dose) 65yo and older 06/25/2016 Influenza, live, intranasal, quadrivalent (FluMist) 2yo to less than 50yo 05/24/2017 Pneumococcal conjugate 13 va lent (Prevnar 13, PCV13) 2mo and older 07/14/2018 Td Tetanus diptheria (Tdvax) 7yo and older 04/04 Tdap Tetanus diptheria acell ular pertussis (Boostrix; Adacel) 7yo and older 04/04/2014 Medical History Medical History Date Comments Anxiety and depression 12/19/2015 DX:Anxiet y and depression Benign prostatic hyperplasia 07/19/2016 DX: Benign prostatic hyperplasia Bilateral carpal tunnel syndrome 11/04/2017 DX:Bilateral carpal tunnel syndrome Bilateral cataracts 05/02/2017 DX:Bilateral cataracts BPPV (benign paroxysmal posi tional vertigo) 04/01/2017 DX:BPPV (benign paroxysmal positional vertigo) Decreased hearing of left ear 04/01/2017 DX :Decreased hearing of left ear History of herpes zoster 05/02/2015 DX:Hist ory of herpes zoster Hyperlipidemia 11/21/2017 DX:Hyperlipidemi a Hypertension 11/21/2017 DX:Hypertension Insomnia 10/22/2016 DX:Insomnia Internal hemorrhoids 02/26/2013 DX:Internal hemorrhoids Vertigo 05/02/2017 DX:Vertigo Anemia 10/22/2016 DX:Anemia; COMME NT: mild normocytic - no iron or b12 def Anal fissure 10/23/2016 DX:Anal fissure Arthralgia of multiple sites 12/19/2015 DX: Arthralgia of multiple sites Obesity (BMI 30.0-34.9) DX:Obesi ty (BMI 30.0-34.9) Parkinson's disease ([facility] V24, [facility] V28) Social History Tobacco Use Types Packs/Day Years Used Date Smoking Tobacco: Former Cigarettes Q uit: 09/15/2017 Smokeless Tobacco: Never Alcohol Use Standard Drinks/Week Comments Yes 0 (1 standard drink = 0.6 oz pur e alcohol) rare Sex and Gender Information Value Date Recorded Sex Assigned at Not on file Legal Sex Male 2:02 PM EST Gender Identity Not on file Sexual Orientation Not on file Obstetrics History Last Filed Vital Signs Vital Sign Reading Time Taken Comments Blood Pressure 136/76 02/08/2025 9:37 AM EDT Pulse 56 02/08/2025 9:31 AM EDT Temperature 36.6 C (97.8 F) 02/08/2025 9:31 AM EDT Respiratory Rate - - Oxygen Saturation 98% 02/08/2025 9:31 AM EDT Inhaled Oxygen Concentration - - Weight 81.9 kg (180 lb 9.6 oz) 02/08/2025 9:31 A M EDT Height 162.6 cm (5' 4 ) 01/05/2025 10:21 AM EDT Body Mass Index 31 01/05/2025 10:21 AM EDT Plan of Treatment Upcoming Encounters Date Type Department Care Team (Late st Contact Info) Description 05/13/2025 9:30 AM EDT Office Visit Internal Medicine - [place] [address] [place] [id number] Jeana Loja, PA [address] [place] [address] Health Maintenance Due Date Last Done Comments Zoster Vaccines (1 of 2) 2000 Pneumococcal Vaccine: 50+ Years (2 of 2 - PPSV23) 07/14/2019 07/14/2018 Abdominal Aortic Aneurysm (AAA) Screen 08/24/2022 Hepatitis C Screening 08/24/2022 Medicare Annual Wellness Visit 08/24/2022 Social Influencers of Health Screening 08/24/2022 Falls Risk Assessment 01/14/2024 01/13/2023 DTaP,Tdap,and Td Vaccines (3 - Td or Tdap) 04/04/2024 04/04/2014, 04/04/2014 COVID-19 Vaccine ( - season) 2024 07/20/2022, 08/04/2021, 01/29/2021, Additional history exists Depression Screening 09/15/2024 05/07/2024 Influenza Vaccine (#1) 2025 , 09/16/2023, 07/20/2022, Additional history exists Hypertension/CHF/CAD Annual BMP Blood Test 05/24/2025 05/24/2024, 05/24/2024, 01/21/2024 RSV Immunization Adult Patients (1 - 1-dose 75+ series) 2025 Cholesterol Screening (Lipid Panel) 05/24/2029 05/24/2024, 05/24/2024, 01/21/2024 Colorectal Cancer Screening: Colonoscopy 10/16/2033 10/16/2023 HIB Vaccines Aged Out No longer eligi ble based on patient's age to complete this topic HPV Vaccines Aged Out No longer eligi ble based on patient's age to complete this topic Hepatitis A Vaccines Aged Out No long er eligible based on patient's age to complete this topic Hepatitis B Vaccines Aged Out No long er eligible based on patient's age to complete this topic IPV Vaccines Aged Out No longer eligi ble based on patient's age to complete this topic MMR Vaccines Aged Out No longer eligi ble based on patient's age to complete this topic Meningococcal ACWY Vaccine Aged Out N o longer eligible based on patient's age to complete this topic Meningococcal B Vaccine Aged Out No l onger eligible based on patient's age to complete this topic RSV Immunization Patients Under 20 months Aged Out No longer eligible based on patient's age to complete this topic Varicella Vaccines Aged Out No longer eligible based on patient's age to complete this topic Procedures Procedure Name Priority Date/Time Associated Diagnosis Comments ANNUAL BMP BLOOD TEST Routine 05/24/2024 LIPID PANEL Routine 05/24/2024 DEPRESSION SCREENING Routine 05/07/2024 FALLS RISK ASSESSMENT Routine 01/13/2023 from Last 3 Months or Most Recently Relevant to Health Maintenance Results * Annual BMP Blood Test (05/24/2024) [facility] Annual BMP Blood Test abstracted [facility] Provider HEALTH MAINTENANCE Final Result * Lipid panel (05/24/2024) [facility] LDL/HDL Ratio 3 0 - 4 Triglycerides 67 0 - 150 mg/dL Cholesterol 153 0 - 200 mg/dL HDL 55 >=40 mg/dL LDL Cholesterol 85 0 - 100 mg/dL Blood Venous blood specimen / Unknown Historical Provider LAB BLOOD ORDERABLES Mary l Result * Depression Screening (05/07/2024) [facility] Depression Screening abstracted us Historical Provider HEALTH MAINTENANCE Final Result * Falls Risk Assessment (01/13/2023) Falls Risk Assessment abstracted Historical Provider HEALTH MAINTENANCE Final Result from Last 3 Months or Most Recently Relevant to Health Maintenance Insurance MEDICARE [facility] Care Teams Manager Mobility Relationship Specialty Start Date End Date Jeana Loja PA [address] [address] PCP - General Internal Medicine 03/22/20
--- OUTSIDE RECORDS SUMMARY | 2025-04-28 14:46 | XMS_ITS | Patient Health Record ---
Author Organization [facility] Address [address] [address] Care Team Providers Care Corporate General Manager Name Role Phone Claudio Louise Primary Care Provider UnavailMARIBELL Hodge Unavailable [phone] Allergies Allergen (clinical drug ingredient) Drug/Non Drug Allergy documented on EMR Reaction Allergy Type Onset Date Status simvastatin Simvastatin Unknown Drug Allergy Act french Reason For Referral No Information Medications Medication SIG (Take, Route, Frequency, Duration) Notes Start Date End Date Status LORazepam 0.5 MG 1 tablet at bedtime as needed Orally Once a day Not-Taking hydrOXYzine HCl 25 MG 1 tablet as needed Orally Once a day Not-Taking Rosuvastatin Calcium 5 MG 1 tablet Orall y Once a day Active Zolpidem Tartrate 10 MG 1 tablet at bedt nirmal as needed Orally Once a day Active Sildenafil Citrate 50 MG 1 tablet as nee ded Orally Once a day Not-Taking Lisinopril-hydroCHLOROthi azide 20-12.5 MG 1 tablet Orally Once a day Active Problems Problem Type SNOMED Code ICD Code Onset Dates Problem Status W/U Status Risk Notes Problem Osteoarthritis of right subtalar joint ([id number] 1) 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) Active confirmed Vital Signs Heart Rate 62 /min 08/18/2024 Temperature 96.4 degrees Fahrenheit 08/18/2024 Respiratory Rate 16 /min 08/18/2024 Height 5ft 4in in 08/18/2024 Weight 184.9 lbs 08/18/2024 BMI 31.73 kg/m2 08/18/2024 Procedures Procedure Date Ordered Date Performed Result Body Sit e AFO ANK GAUNTLT PREFAB W/FIT&ADJ 07/26/2024 N/A Encounters Encounter Location Date Provider Diagnosis [facility] [address] [address] 07/26/2024 MARIBELL COTTON Osteoarthritis of ri ght subtalar joint M19.071 [facility] [address] [address] 08/18/2024 MARIBELL COTTON Osteoarthritis of ri ght subtalar joint M19.071 [facility] [address] [address] 06/08/2024 MARIBELL COTTON Assessments Encounter Date Diagnosis (ICD Code) Assessment Notes Treatment Notes Treatment Clinical Notes Section Notes 07/26/2024 Osteoarthritis of right subtalar joint (ICD-10 - M19.071) Patient examined and evaluated. Past medical history reviewed. Four weightbearing radiographs of the right foot and ankle taken in the office today and reviewed. He has arthritic changes to the right subtalar joint with very limited motion. This is likely causing the stiffness and soreness. I discussed conservative option of bracing to provide stability. He was amenable to this. He was fitted into an ASO brace today and shown how to use it. He will try this over the next three weeks and let me know how he does. I encouraged him to call in the meantime if he has any questions or concerns. 08/18/2024 Osteoarthritis of right subtalar joint (ICD-10 - M19.071) Patient examined and evaluated. Past medical history reviewed. He has arthritic changes to the right subtalar joint with very limited motion. This is likely causing the stiffness and soreness with his first fews steps in the morning or with any uneven terraine. I discussed other types of braces he may find easier to use, but did express that the stability will be less. I offered to teach him again how to use the brace, but he rather try something different. I discussed the other options of intra articular steroid injections and custom braces as well. He wished to try different bracing for now. He will let me know in the future if he wants to pursue any other options of treatment if the pain becomes more persistent. I encouraged him to call if he has any additional questions or concerns. Plan Of Treatment Pending Test Test Name Order Date X ray : Foot, right 3v 07/26/2024 AFO ALISON BUNCH PREFAB W/FIT&ADJ 024 Insurance Providers Payer Name Payer Address Payer Phone Subscriber Number Group Number Insured Name Patient Relationship to Insured Coverage Start Date Coverage End Date [employer] of [place] [address] [place] [phone] [id number] Christ Godfrey Self - patient is the insured [employer] Secondary to Medicare [address] [place] [address] [id number] Christ Godfrey Self - patient is the insured Medical (General) History Medical History History ICD Code Obesity (BMI 30.0-34.9) left shoulder pain hyperlipidemia hypertension bilateral carpal tunnel syndrome bilateral cataracts vertigo BPPV (benign paroxysmal positional verti go decreased hearing of left ear anal fissure insomnia anemia (mild normocytic) benign prostatic hyperplasia anxiety depression history of herpes zoster internal hemorrhoids parkinsons disease COVID vaccinated X 2 Surgical History Surgery Date(Month/Year) clavicle surgery right great toe surgery
== END 2025-04-28 14:39 | disposition home or self-care (01) ==
LOC: HO.HSMS 13:55
PROVIDERS: PCP Internal Medicine; Visit Provider Psychiatry & Neurology Neurology
DX: G20.A1 Parkinson's disease without dyskinesia, without mention of fluctuations (principal); K59.00 Constipation, unspecified; F32.89 Other specified depressive episodes; G47.10 Hypersomnia, unspecified; R06.83 Snoring
CPT/HCPCS: 99214; G2211

== ENCOUNTER → 2025-04-28 13:55 | Outpatient (BNVA) | payer MEDICARE, SELFPAY | PROVIDERS: PCP Internal Medicine; Visit Provider Psychiatry & Neurology Neurology | DX: G20.A1 Parkinson's disease without dyskinesia, without mention of fluctuations (principal); F32.89 Other specified depressive episodes; K59.00 Constipation, unspecified; G47.10 Hypersomnia, unspecified; R06.83 Snoring | CPT/HCPCS: 99212 ==

== ENCOUNTER 2025-08-22 10:26 | Outpatient (AMB) | payer MEDICARE, SELFPAY ==
--- NOTE | 2025-08-22 10:29 | A.OFFVIS_ITS ---
Vital Signs 08/22/25 10:30 Height 5 ft Weight 182 lb 4 oz BMI 35.6 BP 134/62 Blood Pressure Location Rt brachial Position Sitting Pulse 59 Pulse Source Pulse Oximeter Pulse Oximetry (%) 96 Oxygen Delivery Method Room Air Intake Visit Reasons: 4mnth fu Intake Note: Follow up Parkinson's disease without dyskinesia, Constipation, Depression, Snoring and Hypersomnia Shredded Filler Hopper Feeder Required: No Accompanied by: Rutner Allergies No Known Allergies Allergy (Verified 08/22/25 10:30) Medication List - Last Reconciled 08/22/25 by Odilia Pandey MD carbidopa-levodopa 25-100 mg (Sinemet) 0.5 tabs PO BID escitalopram oxalate 20 mg PO DAILY lisinopril-hydrochlorothiazide 20-12.5 mg 1 tab PO DAILY rasagiline 1 mg PO DAILY rosuvastatin 5 mg PO DAILY zolpidem 10 mg PO BEDTIME PRN HPI Comments Details: 74y/o Right handed male comes for follow up of parkinsons disease [place] [address] Patel He feels he is the sim eor better with carbidopa/levodopa 1/2 tab bid -s till has visual hallucinations - sees cars and yao snot bother him He is on rasagiline 1mg and lexapro 5mg and feels he is ok.His voice is softer. He has a feeling that someone is standing next to him. He does [employer] fit 3 times a week. He has word finding difficulty. He reports excessive fatigue . He takes naps during daytime He missed his sleep study History from last visit- He noticed mild worsening of symptoms but still indepe ndent in all his ADLs. he tried carbidopa/levodopa for 10 days and made him tired He has drooling which is worse now . Sleep- good , no nightmares or REM behavior now Mood- anxiety and depression Memory- Mild difficulty Speech- softer , mild slurring Using utensils- good Dressing and showering- good No falls Gait- good Bowel movements- constipation but manageable No head injury, no fh/o parkinsons, no exposure to insecticides. [facility] Medical History Snoring Hypersomnia Depression Constipation Parkinson's disease without dyskinesia Anemia Arthritis BPH (benign prostatic hyperplasia) Vertigo Cataracts, bilateral Carpal tunnel syndrome HTN (hypertension) Hyperlipidemia Insomnia Depression Anxiety Obesity Surgical History Hx of shoulder surgery Family History Other No known health problems Social History Household Members: Friend(s) Alcohol intake: current Alcohol intake frequency: holidays/special occasions only Alcohol type: hard liquor Patient Tobacco Use Status: Former Tobacco user Tobacco use type: Cigar Years Smoked: former Physical Exam Vital Signs: Last Vital Signs Pulse 59 08/22/25 10:30 BP 134/62 08/22/25 10:30 Pulse Ox 96 08/22/25 10:30 Oxygen Delivery Method Room Air 08/22/25 10:30 BMI result Body Mass Index 35.6 Const General: cooperative, healthy appearing and comfortable Nutritional Appearance: overweight Orientation/consciousness: patient oriented x3 HEENT Head: Yes normal to inspection Neck Other: mild antecollis and restricted range of motion Neuro Other: Mild decreased blink and facial expression No lip tremors, tongue tremors , slow tongue movements Voice- normal Left UE mild amplitude rest tremors Fine Finger movements - mild decreased fatoumata l>R Alternating hand movements - decreased fatoumata Hand movements - decreased fatoumata Foot taps- decreased fatoumata mild cog wheel rigidity gait - good mild slowness and decreased arm swing L>R General: patient oriented x3 Cranial nerves: Yes CN's II-XII intact bilaterally, Yes Bilaterally intact EOM present, Yes Normal facial strength present and Yes Midline tongue present Cognition (Neuro): normal cognition Motor exam (neuro): 5/5 motor strength present throughout and Normal motor muscle tone present throughout Coordination: [id number] test normal Assessment & Plan Assessment & Plan (1) Parkinson's disease without dyskinesia: Code(s): G20.A1 - Parkinson's disease without dyskinesia, without mention of fluctuations Category: Medical Qualifiers: Fluctuating manifestations: without fluctuating manifestations Qualified Code(s): G20.A1 - Parkinson's disease without dyskinesia, without mention of fluctuations (2) Constipation: Code(s): K59.00 - Constipation, unspecified Category: Medical Qualifiers: Constipation type: unspecified constipation type Qualified Code(s): K59.00 - Constipation, unspecified (3) Depression: Code(s): F32.A - Depression, unspecified Category: Medical Qualifiers: Depression Type: other depression Qualified Code(s): F32.89 - Other specified depressive episodes (4) Hypersomnia: Code(s): G47.10 - Hypersomnia, unspecified Category: Medical (5) Snoring: Code(s): R06.83 - Snoring Category: Medical Plan Continue rasagiline 1mg qd lexapro 10mg qd Continue carbidopa /levodopa 25/100 1 /2 tab to 1 bid - monitor for hallucinations sleep study - in lab study - could not do home sleep test- rescheduled continue exercises Parkinsons class at [facility] for constipation, suggested smooth move tea and miralax Medications: Changed From escitalopram oxalate 10 mg PO DAILY 30 tabs 6RF To escitalopram oxalate 20 mg PO DAILY 30 tabs 6RF Coding Level of Care Code Est Pt Level 4 (36675) Complex visit Add On G2211 Diagnoses Parkinson's disease without dyskinesia or fluctuating manifestations G20.A1 Fluctuating manifestations: without fluctuating manifestations Constipation, unspecified constipation type K59.00 Constipation type: unspecified constipation type Other depression F32.89 Depression Type: other depression Hypersomnia G47.10 Snoring R06.83
[2025-08-22 10:30] VITALS: BP 134/62; PULSE 59; O2SAT 96; BMI 35.6
== END 2025-08-22 11:08 | disposition home or self-care (01) ==
LOC: HO.HSMS 10:27
PROVIDERS: PCP Internal Medicine; Visit Provider Psychiatry & Neurology Neurology
DX: G20.A1 Parkinson's disease without dyskinesia, without mention of fluctuations (principal); K59.00 Constipation, unspecified; F32.89 Other specified depressive episodes; G47.10 Hypersomnia, unspecified; R06.83 Snoring
CPT/HCPCS: 99214; G2211

== ENCOUNTER → 2025-08-22 10:26 | Outpatient (BNVA) | payer MEDICARE, SELFPAY | PROVIDERS: PCP Internal Medicine; Visit Provider Psychiatry & Neurology Neurology | DX: G20.A1 Parkinson's disease without dyskinesia, without mention of fluctuations (principal); K59.00 Constipation, unspecified; F32.89 Other specified depressive episodes; G47.10 Hypersomnia, unspecified; R06.83 Snoring | CPT/HCPCS: 99212 ==